=== PATIENT | male | born 1980 | race Caucasian/White ===

== ENCOUNTER 2018-07-11 01:32 | Emergency (ER) | payer OTHER | END 2018-07-11 03:07 | disposition other institution (70) | LOC: ED 01:32 | DX: Z02.89 Encounter for other administrative examinations (principal) ==

== ENCOUNTER 2018-07-11 01:32 | Emergency (ER) | payer SELFPAY ==
[~2018-07-11] VITALS: Ht 175.3 cm; Wt 90.7 kg
[2018-07-11 01:36] VITALS: Ht 175.3 cm; Wt 90.7 kg
[2018-07-11 03:06] VITALS: BP 144/105
== END 2018-07-11 03:07 | disposition other institution (70) ==
LOC: ED 01:32
DX: M54.2 Cervicalgia (principal); V89.2XXA Person injured in unspecified motor-vehicle accident, traffic, initial encounter; W22.11XA Striking against or struck by driver side automobile airbag, initial encounter; Y93.I9 Activity, other involving external motion; Y92.413 State road as the place of occurrence of the external cause; Y99.8 Other external cause status